=== PATIENT | male | born 1985 | race Caucasian/White ===

== ENCOUNTER 2017-06-30 15:39 | Emergency (ER) | payer SELFPAY ==
--- NOTE | 2017-06-30 16:06 | ER ---
Nurse's Notes [facility] Name: Maynor Schultz Age: 32 yrs Sex: Male : 1985 Arrival Date: 06/30/2017 Time: 15:43 Bed 12 Private MD: Diagnosis: Essential (primary) hypertension Presentation: 06/30 15:51 Presenting complaint: Patient states: Prescribed Metoprolol Tartrate 25 mg PO BID at [facility] ER 1 month ago. Pt reports he has taken his last dose this morning and needs more. Pt reports he does not have a PCP. at this time. Transition of care: patient was not received from another setting of care. Onset of symptoms is unknown. Initial Sepsis Screen: Does the patient meet any 2 criteria? No. Patient's initial sepsis screen is negative. Does the patient have a suspected source of infection? No. Patient's initial sepsis screen is negative. Care prior to arrival: None. 15:51 Method Of Arrival: Ambulatory 15:51 Acuity: NATHALIE 5 Historical: - Allergies: 15:53 Rocephin; - Home Meds: 15:53 metoprolol tartrate 25 mg Oral tab 1 tab 2 times per day [Active]; ss - PMHx: 15:53 Hypertension; ss - PSHx: 15:53 right ear cartilage surgery; ss - Immunization history:: Adult Immunizations unknown. - Social history:: Smoking status: Patient uses tobacco products, smokes one-half pack cigarettes per day. Screenin:51 Abuse screen: Denies threats or abuse. Denies injuries from another. Nutritional ss screening: No deficits noted. Tuberculosis screening: Never had TB. Fall Risk None identified. Assessment: 15:51 General: Appears in no apparent distress. comfortable, Behavior is calm, cooperative. ss Pain: Denies pain. Neuro: Level of Consciousness is awake, alert, obeys commands, Oriented to person, place, time, situation. Cardiovascular: Capillary refill < 3 seconds is brisk in bilateral fingers. Respiratory: Airway is patent Respiratory effort is even, unlabored, Respiratory pattern is regular, symmetrical, Breath sounds are clear bilaterally. Denies cough, shortness of breath. GI: No signs and/or symptoms were reported involving the gastrointestinal system. Derm: Skin is intact, is healthy with good turgor, Skin is pink, warm \T\ dry. normal. Musculoskeletal: No signs and/or symptoms reported regarding the musculoskeletal system. Vital Signs: 15:53 BP 136 / 84; Pulse 97; Resp 16; Temp 98.3(TE); Pulse Ox 99% on R/A; Weight 90.72 kg; ss Height 5 ft. 11 in. (180.34 cm); Pain 0/10; 15:53 Body Mass Index 27.89 (90.72 kg, 180.34 cm) ss ED Course: 15:43 Patient arrived in ED. sb2 15:51 Patient has correct armband on for positive identification. Bed in low position. Call ss light in reach. 15:52 Triage completed. ss 15:53 Liza Srivastava FNP-C [facility]. kb 15:53 Aftab Muse MD is Attending Physician. kb 15:53 Arm band placed on right wrist. ss 16:11 Jeanie Edmonds, VANESSA is Primary Nurse. ss 16:13 No provider procedures requiring assistance completed. Patient did not have IV access ss during this emergency room visit. Administered Medications: No medications were administered Outcome: 16:05 Discharge ordered by . kb 16:13 Discharged to home ambulatory. ss 16:13 Condition: good 16:13 Discharge instructions given to patient, Instructed on discharge instructions, follow up and referral plans. medication usage, Demonstrated understanding of instructions, follow-up care, medications, Prescriptions given X 1. 16:21 Patient left the ED. ss Signatures: Liza Srivastava FNP-C FNP-Ckb Smirch, [place], VANESSA RN Stanton Rosenthali sb2
--- NOTE | 2017-06-30 16:06 | EDPHYS ---
Physician Documentation [facility] Name: Maynor Schultz Age: 32 yrs Sex: Male : 1985 Arrival Date: 06/30/2017 Time: 15:43 Bed 12 Private MD: ED Physician Aftab Muse HPI: 06/30 15:55 This 32 yrs old Male presents to ER via Ambulatory with complaints of kb Medication Refill. 15:55 The patient presents to the emergency department requesting refill(s) for: Lopressor. kb The patient chronically suffers from hypertension. The patient has not experienced similar symptoms in the past. The patient has not recently seen a physician. Pt states he ran out of metoprolol and doesn't have a PCP to get a refill. Historical: - Allergies: 15:53 Rocephin; ss - Home Meds: 15:53 metoprolol tartrate 25 mg Oral tab 1 tab 2 times per day [Active]; ss - PMHx: 15:53 Hypertension; ss - PSHx: 15:53 right ear cartilage surgery; ss - Immunization history:: Adult Immunizations unknown. - Social history:: Smoking status: Patient uses tobacco products, smokes one-half pack cigarettes per day. ROS: 16:05 Constitutional: Negative for fever, chills, and weight loss, Eyes: Negative for injury, kb pain, redness, and discharge, Cardiovascular: Negative for chest pain, palpitations, and edema, Respiratory: Negative for shortness of breath, cough, wheezing, and pleuritic chest pain, Abdomen/GI: Negative for abdominal pain, nausea, vomiting, diarrhea, and constipation, Back: Negative for injury and pain, MS/Extremity: Negative for injury and deformity, Skin: Negative for injury, rash, and discoloration, Neuro: Negative for headache, weakness, numbness, tingling, and seizure. Exam: 16:05 Constitutional: This is a well developed, well nourished patient who is awake, alert, kb and in no acute distress. Head/Face: Normocephalic, atraumatic. Eyes: Pupils equal round and reactive to light, extra-ocular motions intact. Lids and lashes normal. Conjunctiva and sclera are non-icteric and not injected. Cornea within normal limits. Periorbital areas with no swelling, redness, or edema. Neck: Trachea midline, no thyromegaly or masses palpated, and no cervical lymphadenopathy. Supple, full range of motion without nuchal rigidity, or vertebral point tenderness. No Meningismus. Chest/axilla: Normal chest wall appearance and motion. Nontender with no deformity. No lesions are appreciated. Cardiovascular: Regular rate and rhythm with a normal S1 and S2. No gallops, murmurs, or rubs. Normal PMI, no JVD. No pulse deficits. Respiratory: Lungs have equal breath sounds bilaterally, clear to auscultation and percussion. No rales, rhonchi or wheezes noted. No increased work of breathing, no retractions or nasal flaring. Abdomen/GI: Soft, non-tender, with normal bowel sounds. No distension or tympany. No guarding or rebound. No evidence of tenderness throughout. Skin: Warm, dry with normal turgor. Normal color with no rashes, no lesions, and no evidence of cellulitis. MS/ Extremity: Pulses equal, no cyanosis. Neurovascular intact. Full, normal range of motion. Neuro: Awake and alert, GCS 15, oriented to person, place, time, and situation. Cranial nerves II-XII grossly intact. Motor strength 5/5 in all extremities. Sensory grossly intact. Cerebellar exam normal. Normal gait. Vital Signs: 15:53 BP 136 / 84; Pulse 97; Resp 16; Temp 98.3(TE); Pulse Ox 99% on R/A; Weight 90.72 kg; ss Height 5 ft. 11 in. (180.34 cm); Pain 0/10; 15:53 Body Mass Index 27.89 (90.72 kg, 180.34 cm) ss MDM: 15:55 Patient medically screened. kb 16:05 Data reviewed: vital signs, nurses notes. Data interpreted: Pulse oximetry: on room air kb is 99 %. Interpretation: normal. 16:05 Counseling: I had a detailed discussion with the patient and/or guardian regarding: the kb historical points, exam findings, and any diagnostic results supporting the discharge/admit diagnosis, the need for outpatient follow up, a family practitioner, to return to the emergency department if symptoms worsen or persist or if there are any questions or concerns that arise at home. Administered Medications: No medications were administered Disposition: 18:12 Co-signature as Attending Physician, Aftab Muse MD. rn Disposition: 06/30/17 16:05 Discharged to Home. Impression: Essential (primary) hypertension. - Condition is Stable. - Discharge Instructions: Hypertension, [id number]. - Prescriptions for Metoprolol Tartrate 25 mg Oral Tablet - take 1 tablet by ORAL route 2 times per day with a meal; 10 tablet. - Medication Reconciliation Form, Thank You Letter, Antibiotic Education, Prescription Opioid Use form. - Follow up: Emergency Department; When: As needed; Reason: Worsening of condition. Follow up: Private Physician; When: 2 - 3 days; Reason: Recheck today's complaints, Continuance of care, Re-evaluation by your physician. Signatures: Liza Srivastava, CLASSIFIER OPERATOR-C CLASSIFIER OPERATOR-Ckb Aftab Muse MD MD rn [facility] CenterJeanie ramirez RN RN ss Corrections: (The following items were deleted from the chart) 16:21 16:05 06/30/2017 16:05 Discharged to Home. Impression: Essential (primary) ss hypertension. Condition is Stable. Forms are Medication Reconciliation Form, Thank You Letter, Antibiotic Education, Prescription Opioid Use. Follow up: Emergency Department; When: As needed; Reason: Worsening of condition. Follow up: Private Physician; When: 2 - 3 days; Reason: Recheck today's complaints, Continuance of care, Re-evaluation by your physician. kb
[2017-06-30 16:39] VITALS: BP 136/84; TEMP 98.3; O2SAT 99
== END 2017-06-30 16:21 | disposition home or self-care (01) ==
LOC: ER 15:39
DX: I10 Essential (primary) hypertension (principal); F17.210 Nicotine dependence, cigarettes, uncomplicated; Z88.1 Allergy status to other antibiotic agents
CPT/HCPCS: 99282